=== PATIENT | female | born 1995 ===

== ENCOUNTER 2018-08-28 16:18 | Emergency (ER) | payer BC ==
[2018-08-28 16:26] VITALS: RESP 18
[2018-08-28] MEDS ORDERED: Sodium Chloride 0.9% 1,000 ML IV STA (16:49)
--- NOTE | 2018-08-28 16:56 | ED PDOC ---
HPI: Abdomen Time Seen by Provider: 08/28/18 16:30 Chief Complaint (Nursing): Abdominal Pain Chief Complaint (Provider): headache, nausea History Per: Patient History/Exam Limitations: no limitations Onset/Duration Of Symptoms: Hrs (today) Additional Complaint(s): iPo Chauhan, a 23 year old female with no significant past medical history, presents to the ED with a headache and nausea onset today. Patient states she was out drinking last night and when she woke up she had a headache, felt nauseous and was unable to tolerate liquids. She reports taking an over the counter medication that had caffeine and Tylenol in it. No further medical complaints. Past Medical History Reviewed: Historical Data, Nursing Documentation, Vital Signs Vital Signs: Last Vital Signs Temp 98.6 F 08/28/18 16:24 Pulse 85 08/28/18 16:24 Resp 18 08/28/18 16:24 BP 104/68 08/28/18 16:24 Pulse Ox 100 08/28/18 16:24 - Family History Family History: States: Unknown Family Hx - Home Medications Home Medications: Ambulatory Orders Medication Instructions Recorded Ondansetron ODT [Zofran ODT] 4 mg PO QID #10 odt 08/28/18 - Allergies Allergies/Adverse Reactions: Allergies Allergy/AdvReac Type Severity Reaction Status Date / Time No Known Allergies Allergy Verified 08/28/18 16:24 Review of Systems ROS Statement: Except As Marked, All Systems Reviewed And Found Negative Constitutional: Positive for: Other (unable to tolerate liquids) Gastrointestinal: Positive for: Nausea Neurological: Positive for: Headache Physical Exam - Reviewed Nursing Documentation Reviewed: Yes Vital Signs Reviewed: Yes - Physical Exam Appears: Positive for: Well, Non-toxic, No Acute Distress Head Exam: Positive for: ATRAUMATIC, NORMAL INSPECTION, NORMOCEPHALIC Skin: Positive for: Normal Color, Warm, DRY Eye Exam: Positive for: Normal appearance ENT: Positive for: Normal ENT Inspection Neck: Positive for: Normal Cardiovascular/Chest: Positive for: Regular Rate, Rhythm. Negative for: Bradycardia, Tachycardia Respiratory: Positive for: Normal Breath Sounds. Negative for: Accessory Muscle Use, Respiratory Distress Gastrointestinal/Abdominal: Positive for: Normal Exam, Bowel Sounds. Negative for: Tenderness Back: Positive for: Normal Inspection Extremity: Positive for: Normal ROM Neurologic/Psych: Positive for: Alert, Oriented - Laboratory Results Result Diagrams: 08/28/18 17:09 08/28/18 17:09 - ECG O2 Sat by Pulse Oximetry: 100 (RA) Pulse Ox Interpretation: Normal Medical Decision Making Medical Decision Making: Time: 16:30 Initial Impression: Initial Plan: --Alcohol serum --CMP --Urine drug screen --Urine --CBC w/ differential --Sodium chloride 1000 mL IV --Toradol 30 mg IV --Zofran 4 mg IV Pt reports feeling much better on re-evaluation. Requesting food. ---- Scribe Attestation: Documented by Torie Sanabria, acting as a scribe for Nunu Chandra PA-C. Provider Scribe Attestation: All medical record entries made by the Scribe were at my direction and personal ly dictated by me. I have reviewed the chart and agree that the record accurately reflects my personal performance of the history, physical exam, medical decision making, and the department course for this patient. I have also personally directed, reviewed, and agree with the discharge instructions and disposition. Disposition - Clinical Impression Clinical Impression: Hangover without complication - Patient ED Disposition Is Patient to be Admitted: No Counseled Patient/Family Regarding: Diagnosis, Need For Followup - Disposition Disposition: Routine/Home Disposition Time: 18:06 Condition: GOOD Prescriptions: Ondansetron ODT [Zofran ODT] 4 mg PO QID #10 odt Instructions: Effects of Alcohol on Your Health Forms: [employer] (Slovenian)
[2018-08-28 17:14] LABS: BASO # 0.1 K/uL (0.0-0.2); BASO % 0.6 % (0.0-2.0); EOS % 0.2 % (0.0-4.0); HEMOGLOBIN 11.5 g/dL (12.0-16.0); LYMPH # 1.7 K/uL (1.0-4.3); LYMPH % 13.4 % (20.0-40.0); MEAN CELL VOLUME 86.2 fl (81.0-99.0); MEAN CORPUSCULAR HEMOGLOBIN 27.7 pg (27.0-31.0); MEAN CORPUSCULAR HGB CONC 32.1 g/dL (33.0-37.0); MEAN PLATELET VOLUME 7.3 fl (7.2-11.7); MONO # 0.5 K/uL (0.0-0.8); MONO % 4.1 % (0.0-10.0); NEUT # 10.2 K/uL (1.8-7.0); NEUT % 81.7 % (50.0-75.0); RBC 4.16 Mil/uL (3.80-5.20); RED CELL DISTRIBUTION WIDTH 15.3 % (11.5-14.5); WHITE BLOOD COUNT 12.5 K/uL (4.8-10.8)
[2018-08-28 17:23] LABS: ALB/GLOB RATIO 1.2 (1.0-2.1); ALBUMIN 4.8 g/dL (3.5-5.0); ALT/SGPT 35 U/L (9-52); AST/SGOT 59 U/L (14-36); BLOOD UREA NITROGEN 13 mg/dl (7-17); CALCIUM 9.8 mg/dL (8.4-10.2); GFR NON-AFRICAN AMERICAN > 60
[2018-08-28 17:57] LABS: BARBITURATES, UR NEGATIVE (NEGATIVE); BENZODIAZEPINES, UR NEGATIVE (NEGATIVE); OPIATES, UR NEGATIVE (NEGATIVE); PHENCYCLIDINE, UR NEGATIVE (NEGATIVE)
[2018-08-28 18:16] VITALS: BP 110/78; PULSE 72; TEMP 98.2; O2SAT 99
== END 2018-08-28 18:17 | disposition home or self-care (01) ==
LOC: H.ER 16:18
DX: T51.0X1A Toxic effect of ethanol, accidental (unintentional), initial encounter (principal)
CPT/HCPCS: 80053; 81025; 85025; 96374; 96375; 99284; G0480; J1885; J2405; J7030